=== PATIENT | female | born 1970 | race African-American/Black ===

== ENCOUNTER 2017-07-30 05:08 | Emergency (ER) | payer MEDICARE, MEDICAID ==
[2017-07-30 05:16] VITALS: BP 121/83
[2017-07-30] MEDS ORDERED: HYDROMORPHONE HCL INJ/PF 2 MG/ML AMPULE IV ONE (05:29)
[2017-07-30] MEDS ORDERED: ONDANSETRON HCL INJ/PF 4 MG/2 ML SDV IV ONE (05:29)
[2017-07-30] MEDS ORDERED: LIDOCAINE 1% INJ-PF (10 MG/ML) 30 ML SDV INJ ONE (05:30)
--- NOTE | 2017-07-30 05:35 | ER Document Report ---
ED Oral Problem - General Chief Complaint: Other Stated Complaint: FACIAL PAIN,SWELLING Time Seen by Provider: 07/30/17 05:22 Notes: Patient is a 46-year-old female who comes emergency department for chief complaint of facial swelling. She states that 2 days ago she was diagnosed with a dental infection, placed on amoxicillin, referred to oral surgeon where she is to have an infected root removed, she states she was referred by her dentist to oral surgery, told to come to the ER if she worsens. She denies fever, difficulty swallowing, denies any other symptoms. 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 TRAVEL OUTSIDE OF THE [place] IN LAST 30 DAYS: No - Related Data Allergies/Adverse Reactions: No Known Allergies Allergy (Verified 07/30/17 05:10) Past Medical History - General Information source: Patient - Social History Smoking Status: Never Smoker Frequency of alcohol use: None Drug Abuse: None Lives with: Family Family History: Reviewed & Not Pertinent - Past Medical History Cardiac Medical History: Denies: Hx Coronary Artery Disease, Hx Heart Attack, Hx Hypertension Pulmonary Medical History: Denies: Hx Asthma, Hx Bronchitis, Hx COPD, Hx Pneumonia Neurological Medical History: Denies: Hx Cerebrovascular Accident, Hx Seizures Musculoskeltal Medical History: Denies Hx Arthritis Psychiatric Medical History: Reports: Hx Depression - Immunizations Hx Diphtheria, Pertussis, Tetanus Vaccination: Yes Review of Systems - Review of Systems Constitutional: No symptoms reported EENT: See HPI Cardiovascular: No symptoms reported Respiratory: No symptoms reported Gastrointestinal: No symptoms reported Genitourinary: No symptoms reported Female Genitourinary: No symptoms reported Musculoskeletal: No symptoms reported Skin: No symptoms reported Hematologic/Lymphatic: No symptoms reported Neurological/Psychological: No symptoms reported Physical Exam - Vital signs Vitals: Temp Pulse Resp BP Pulse Ox 98.3 F 107 H 20 121/83 97 07/30/17 05:14 07/30/17 05:14 07/30/17 05:14 07/30/17 05:14 07/30/17 05:14 Interpretation: Normal - General General appearance: Alert, Anxious In distress: None - HEENT Head: Normocephalic, Atraumatic Eyes: Normal Conjunctiva: Normal Extraocular movements intact: Yes Eyelashes: Normal Pupils: PERRL Sinus: Normal Nasal: Normal Teeth diagram: 1 - Dental abscess on the gumline directly above the teeth, slightly lifted upper lip because of the swelling, nearby dental caries, no other gingiva, dental, or oral abnormality noted otherwise. Pharynx: Normal Neck: Normal - Respiratory Respiratory status: No respiratory distress Chest status: Nontender Breath sounds: Normal Chest palpation: Normal - Cardiovascular Rhythm: Regular Heart sounds: Normal auscultation Murmur: No - Abdominal Inspection: Normal Distension: No distension Bowel sounds: Normal Tenderness: Nontender Organomegaly: No organomegaly - Back Back: Normal, Nontender - Extremities General upper extremity: Normal inspection, Nontender, Normal color, Normal ROM , Normal temperature General lower extremity: Normal inspection, Nontender, Normal color, Normal ROM , Normal temperature, Normal weight bearing. No: Mj's sign - Neurological Neuro grossly intact: Yes Cognition: Normal Orientation: AAOx4 Tejal Coma Scale Eye Opening: Spontaneous Tejal Coma Scale Verbal: Oriented Tejal Coma Scale Motor: Obeys Commands Faith Coma Scale Total: 15 Speech: Normal Motor strength normal: LUE, RUE, LLE, RLE Sensory: Normal - Psychological Associated symptoms: Normal affect, Normal mood - Skin Skin Temperature: Warm Skin Moisture: Dry Skin Color: Normal Course - Re-evaluation Re-evalutation: Large dental abscess noted on the gumline but with palpation does not appear to extend up into the upper lip, sinus, nasal, or facial direction. Normal oropharyngeal exam otherwise other than dental caries. Patient was given pain medication, afterwards incision was made in the abscess with a scalpel and about 15 cc of purulent material was drained. Area was cleaned, patient rinsed her mouth and had 2 x 2's placed to help with the absorption, she was given extra once for home. Patient provided with additional pain medication, placed on clindamycin instead on amoxicillin, she has very close follow-up with oral surgery in less than 2 days, discussed return precautions in detail, patient states satisfaction and agreement. - Vital Signs Vital signs: Temp Pulse Resp BP Pulse Ox 98.3 F 107 H 20 121/83 100 07/30/17 05:14 07/30/17 05:14 07/30/17 05:14 07/30/17 05:14 07/30/17 06:00 Procedures - Incision and Drainage Left upper gingiva Type: Single Blade size: 11 Incision Method: Incision made by scalpel Amount/type of drainage: About 15 cc of purulent drainage and small amount of blood Discharge - Discharge Clinical Impression: Oral abscess Condition: Stable Disposition: HOME, SELF-CARE Additional Instructions: The abscess has been drained. This will continue to drain. You will likely need to do frequent mouth rinses. Take Percocet if needed for pain, take the clindamycin instead of the amoxicillin for the antibiotic. Please follow-up on Tuesday as planned with your oral surgeon for additional management. Return if you worsen including increased swelling of the face, fever, or any other concerning symptoms. Prescriptions: Clindamycin HCl [Cleocin 150 mg Capsule] 150 mg PO Q6 #56 capsule Oxycodone HCl/Acetaminophen [Percocet 5-325 mg Tablet] 1 - 2 tab PO Q4H PRN #15 tablet PRN Reason:
== END 2017-07-30 06:36 | disposition home or self-care (01) ==
LOC: ER 05:08
PROC: 0C95XZZ Drainage of Upper Gingiva, External Approach (ICD-10-PCS; principal; 2017-07-30)
DX: K04.7 Periapical abscess without sinus (principal); R51 Headache; R22.0 Localized swelling, mass and lump, head
CPT/HCPCS: 99283; 96374; 96375; 41800; J1170; J2405

== ENCOUNTER 2018-05-17 09:52 | Emergency (ER) | payer MEDICARE, MEDICAID ==
[2018-05-17] MEDS ORDERED: METHOCARBAMOL 750 MG TABLET PO ONE (10:36)
[2018-05-17] MEDS ORDERED: KETOROLAC TROMETHAMINE 60 MG/2 ML SDV IM ONE (10:36)
[2018-05-17] MEDS ORDERED: DEXAMETHASONE SOD PHOS INJ 10 MG/1 ML VIAL IM ONE (10:36)
[2018-05-17] MEDS ORDERED: LIDOCAINE 5% (700 MG) TRANSDERMAL ADH..PATCH TP ONE (10:36)
--- NOTE | 2018-05-17 10:54 | ER Document Report ---
ED General - General Mode of Arrival: Medic Information source: Patient TRAVEL OUTSIDE OF THE [place] IN LAST 30 DAYS: No - General Chief Complaint: Back Pain Stated Complaint: BACK PAIN Time Seen by Provider: 05/17/18 10:27 Notes: Patient is a 47-year-old female who presents to the emergency department via EMS for chief complaint of back pain. Patient reports she started having pain last Tuesday. She states that the pain is located just below her left shoulder blade. She reports that at the onset of pain she thinks it started after sleeping wrong. Patient states the pain has gotten worse, she uses a walker to get around her house and she has been having increasing difficulty due to having to use her upper body. Patient denies any numbness or tingling in any extremities. She denies any fever. She has not had any incidences of bowel incontinence. She reports she is able to urinate without any difficulty and denies any dysuria. She denies any saddle anesthesia. Patient's past medical history includes early onset cerebellar ataxia. (STNALEY ROWAN) - Related Data Allergies/Adverse Reactions: No Known Allergies Allergy (Verified 07/30/17 05:10) Past Medical History - General Information source: Patient - Social History Smoking Status: Never Smoker Chew tobacco use (# tins/day): No Frequency of alcohol use: None Drug Abuse: None Family History: Reviewed & Not Pertinent Patient has suicidal ideation: No Patient has homicidal ideation: No - Medical History Medical History: Other - Cerebellar ataxia - Past Medical History Cardiac Medical History: Denies: Hx Coronary Artery Disease, Hx Heart Attack, Hx Hypertension Pulmonary Medical History: Denies: Hx Asthma, Hx Bronchitis, Hx COPD, Hx Pneumonia Neurological Medical History: Denies: Hx Cerebrovascular Accident, Hx Seizures Renal/ Medical History: Denies: Hx Peritoneal Dialysis Musculoskeletal Medical History: Denies Hx Arthritis Psychiatric Medical History: Reports: Hx Depression Past Surgical History: Reports: Hx Hysterectomy - Immunizations Hx Diphtheria, Pertussis, Tetanus Vaccination: Yes Review of Systems - Review of Systems Musculoskeletal: See HPI -: Yes All other systems reviewed and negative Physical Exam - Vital signs Vitals: Temp Pulse Resp BP Pulse Ox 99.1 F 86 15 140/93 H 92 05/17/18 10:00 05/17/18 10:00 05/17/18 10:00 05/17/18 10:00 05/17/18 10:00 - Notes Notes: PHYSICAL EXAMINATION: GENERAL: Well-appearing, well-nourished and in no acute distress. HEAD: Atraumatic, normocephalic. EYES: Pupils equal round and reactive to light, extraocular movements intact, conjunctiva are normal. ENT: Nares patent, oropharynx clear without exudates. Moist mucous membranes. NECK: Normal range of motion, supple without lymphadenopathy LUNGS: Breath sounds clear to auscultation bilaterally and equal. No wheezes rales or rhonchi. HEART: Regular rate and rhythm without murmurs ABDOMEN: Soft, nontender, nondistended abdomen. No guarding, no rebound. No masses appreciated. Female : No CVA tenderness Musculoskeletal: Normal range of motion, no pitting or edema. No cyanosis. Tenderness to palpation over left thoracic paraspinous muscles. NEUROLOGICAL: Cranial nerves grossly intact. Normal speech, normal gait. Normal sensory, motor exams PSYCH: Normal mood, normal affect. SKIN: Warm, Dry, normal turgor, no rashes or lesions noted. (STANLEY ROWAN) Course - Re-evaluation Re-evalutation: Relatively healthy 47-year-old female who is nontoxic in appearance, does not appear to be in any acute distress. Consulted Dr. Leblanc who recommends ordering a urinalysis to evaluate for infectious source. Patient will be medicated with IM Decadron, IM Toradol, transdermal Lidoderm patch and p.o. Robaxin. Patient is agreeable to this plan. 05/17/18 11:36 Urinalysis is unremarkable with no signs of infection. Patient reports significant improvement of her pain after administration of medications. Patient will be discharged home in stable condition. (STANLEY ROWAN) 05/17/18 15:17 I personally evaluated this patient. She had received medication on my exam and was feeling significantly improved. She had normal range of motion of her thoracic, cervical and lumbar spines. She had no midline spinal tenderness. She had no focal neurologic deficits. Agree with discharge home with pain control. Patient's pain likely musculoskeletal. (CAREY LEBLANC) - Vital Signs Vital signs: Temp Pulse Resp BP Pulse Ox 97.7 F 82 16 142/95 H 99 05/17/18 11:47 05/17/18 11:47 05/17/18 11:47 05/17/18 11:47 11/07/18 11:47 Discharge - Discharge Clinical Impression: Musculoskeletal strain Condition: Stable Disposition: HOME, SELF-CARE Additional Instructions: Muscle Strain You have strained a muscle -- torn the fibers within the muscle. This often occurs with strenuous exertion, or during an injury that suddenly stretches the muscle. The seriousness of a strain varies. Some strains heal within days, others cause problems for months. X-rays cannot show a muscle strain. X-rays are taken only if symptoms suggest that a fracture could be present. The usual treatment of a muscle strain is rest and ice packs. Sometimes, a sling, splint, or crutches may be necessary to rest the muscle. The muscle can be used again once pain subsides. Severe strains require a special exercise and stretching program to prevent permanent stiffness and disability. Your doctor will advise you if this will be necessary. Call the doctor immediately if pain or swelling becomes severe, or if numbness or discoloration develop. Muscle Relaxers Muscle relaxing medications are usually prescribed for acute muscle spasm or injury to the neck and back. They are often combined with antiinflammatory pain medication for increased relief. You may stop the muscle relaxer when the pain and stiffness have improved. Start the medication again if spasms recur. Muscle relaxers may cause drowsiness, especially with the first dose. Do not operate machinery or drive while under the effects of the medication. Most muscle relaxers last up to 24 hours. Do not combine the medication with alcohol. Please take ibuprofen 600 mg every 6 hours for pain and inflammation. Use the muscle relaxers and lidocaine patches as prescribed. Follow-up with your primary care provider in the next 3-5 days. Prescriptions: Lidocaine [Lidoderm 5% (700 mg) Transdermal Patch] 1 patch TP DAILY #30 adh..patch Methocarbamol [Robaxin 500 mg Tablet] 500 mg PO TID #20 tablet Referrals: ELIDA MARTINEZ MD [Primary Care Provider] - Follow up as needed
[2018-05-17 11:23] LABS: APPEARANCE,URINE SLIGHTLY-CLOUDY; BILIRUBIN,URINE NEGATIVE (NEGATIVE); COLOR,URINE YELLOW; GLUCOSE, URINE NEGATIVE (NEGATIVE); KETONES,URINE NEGATIVE (NEGATIVE); LEUKOCYTE ESTERASE,URINE NEGATIVE (NEGATIVE); NITRITE,URINE NEGATIVE (NEGATIVE); PROTEIN,URINE NEGATIVE (NEGATIVE); URINE SPECIFIC GRAVITY 1.017; UROBILINOGEN,URINE NEGATIVE mg/dL (<2.0)
[2018-05-17 11:54] VITALS: BP 142/95
== END 2018-05-17 11:47 | disposition home or self-care (01) ==
LOC: ER 09:52
DX: T14.8XXA Other injury of unspecified body region, initial encounter (principal); X58.XXXA Exposure to other specified factors, initial encounter; M54.89 Other dorsalgia
CPT/HCPCS: 99284; 96372; 81001; J1885; A9270; J1100; J3490

== ENCOUNTER → 2018-07-17 | Outpatient (CLI) | payer MEDICARE, MEDICAID ==
--- NOTE | 2018-07-17 12:20 | RADIOLOGY REPORT (SQ) ---
EXAM DESCRIPTION: C SP 4 OR 5 VIEWS COMPLETED DATE/TIME: 07/17/2018 12:05 pm REASON FOR STUDY: CERVICALGIA M54.2 CERVICALGIA Neck pain since May 2018, no known injury COMPARISON: None. NUMBER OF VIEWS: Five views. TECHNIQUE: AP, lateral, obliques and odontoid radiographic images acquired of the cervical spine. LIMITATIONS: None. FINDINGS: MINERALIZATION: Normal. ALIGNMENT: Anatomic. VERTEBRAE: Vertebral bodies of normal height. DISCS: Disc space loss of height at C4-5 and C5-6. Posterior and anterior osteophytes at C5-6. FORAMINA: Moderate left C5-6 foraminal narrowing from facet and uncovertebral hypertrophy LATERAL AND POSTERIOR ELEMENTS: Facets, lateral masses and spinous processes without significant find ings. HARDWARE: None in the spine. SOFT TISSUES: No masses or calcifications. Lung apices clear. OTHER: No other significant finding. IMPRESSION: Degenerative disc changes and left foraminal narrowing at C5-6 TECHNICAL DOCUMENTATION: JOB ID: [id number] [employer]- All Rights Reserved Reading location - IP/workstation name: [email or web address]
== END ==
LOC: OD 10:48
PROVIDERS: ATTEND Physician Assistant
DX: M54.2 Cervicalgia (principal); M50.321 Other cervical disc degeneration at C4-C5 level
CPT/HCPCS: 72050